=== PATIENT | female | born 1985 | race Caucasian/White ===

== ENCOUNTER 2020-11-02 13:52 | Inpatient (IN) | payer BC, SELFPAY ==
[2020-11-02] VITALS (63 sets, daily range): BP systolic 81–122; BP diastolic 30–84; PULSE 61–136; TEMP 36.8–37.1; O2SAT 95–100; BMI 24.5
[2020-11-02 15:40] LABS: Basophils Percent Auto 0.4 % (0.2-1.2); Eosinophils Absolute Auto 0.1 K/mm3 (0-0.3); Hematocrit 38.3 % (37.0-47.0); Hemoglobin 13.4 g/dL (12.0-15.0); Immature Granulocyte Absolute 0.07 K/mm3 (0.00-0.031); Lymphocytes Absolute Auto 1.09 K/mm3 (0.9-3.2); Lymphocytes Percent Auto 14.9 % (18.3-44.2); Mean Corpuscular Hemoglobin 30.7 pg (26-34); Mean Corpuscular Volume 87.8 fl (80-100); Mean Platelet Volume 9.7 fl (7.4-10.4); Monocytes Absolute Auto 0.5 K/mm3 (0.1-0.6); Monocytes Percent Auto 7.4 % (2.6-8.5); Neutrophils Absolute Auto 5.5 K/mm3 (1.3-6.7); Neutrophils Percent Auto 75.3 % (45.5-73.1); Platelet Count Result 153 k/mm3 (150-375); Red Blood Count 4.36 M/mm3 (4.2-5.4); White Blood Count 7.3 K/mm3 (4.5-10.0)
--- NOTE | 2020-11-02 15:41 | LDADM ---
This patient, Nichelle Stout, was admitted to Labor/Delivery/Recovery 109 on 11/02/20 at 13:52. Plans for labor, pain management and were discussed with patient. Patient/family oriented to hospital policies and general routines including ID bracelet, bed and alarms, visiting hours, pain management, procedures, bathroom and other care routines, personal items, smoking policy, room service/diet and guest tray routines, security routines, and visiting hours. Patient/Family are encouraged to report perceived risks to care and to ask questions if they do not understand what they are told or what they should do. See OBIX for further documentation.
[2020-11-02] MEDS: OXYTOCIN 30 UNITS/NS 500 ML 30 UNITS/500 ML BAG IV CONT (16:13)
[2020-11-02] MEDS: LACTATED RINGERS 1,000 ML 125 ML IV CONT ×2 (16:13→22:30)
--- NOTE | 2020-11-02 17:42 | PM.IMHP ---
H&P: HPI History of Present Illness Date/Time: 11/02/20 17:42 Chief Complaint: heart decels Narrative: Nichelle Stout is a 35 yo @ 38.3wks (MIKE 11/13/20) who presented to triage for routine testing due to gestational diabetes and was found to have 3 late decelerations on NST. She has had regular care. Good movement. No vaginal bleeding or leakage of fluid. She has since been started on pitocin augmentation but is comfortable; does desire epidural at some point. Her is complicated by: - A1GDM - Varicose veins Review of Systems Constitutional: Constitutional: Denies fever(s) Eyes: Eyes: Denies diplopia ENT: Denies headache(s) Cardiovascular: Cardiovascular: Denies chest pain and Denies rapid heart rate Respiratory: Respiratory: Denies cough and Denies dyspnea Gastrointestinal: Gastrointestinal: Denies nausea and Denies vomiting Genitourinary: Genitourinary: Denies vaginal discharge Neurologic: Denies headache(s) Psychiatric: Psychiatric: Denies anxiety and Denies depression [facility] Family History Family History Other Family history of glaucoma Family history of hypercholesterolemia Family history of malignant neoplasm of breast Hypertension Social History Social History Smoking status: Never smoker Alcohol intake: current Substance use: never Gender identity (if verbalized by the patient): Female Spiritual care concerns: No Meds Home Medications and Allergies Home Medications Medication Instructions Recorded Confirmed Type PNV cmb#95-ferrous fumarate-FA 1 tablet PO DAILY 09/21/20 11/02/20 History [] Allergies Allergy/AdvReac Type Severity Reaction Status Date / Time amoxicillin Allergy Intermediate Rash Verified 08/22/18 09:55 Vital Signs Vital Signs - 24 hr 11/02/20 15:46 11/02/20 16:00 11/02/20 16:15 Temperature Pulse Rate 82 81 83 Blood Pressure 94/62 L 95/63 L 104/62 11/02/20 16:22 Temperature 36.8 C Pulse Rate Blood Pressure Exam Const: General: cooperative, healthy appearing and comfortable Resp: Effort & Inspection: normal respiratory effort and able to speak in complete sentences Cardio: Rate: regular rate GI: GI Palp: No abdominal tenderness and Yes Soft to palpation : Other: FHT's: 130's/ mod janina/ + accels/ occasional mild variable + occasional late decel - cat 2, overrall reassuring TOCO: ctx's q3-5 min Cervix: 4/50/-3 Membranes: AROM, clear 1730 Pitocin: 2 Presentation: cephalic H&P: Results Labs Labs: Short CBC 11/02/20 Range/Units 15:31 WBC 7.3 (4.5-10.0) K/mm3 Hgb 13.4 (12.0-15.0) g/dL Hct 38.3 (37.0-47.0) % Plt Count 153 (150-375) k/mm3 Assessment and Plan Assessment and plan (1) Gestational diabetes: Qualifiers: Gestational diabetes mellitus control: diet-controlled Trimester: third trimester Qualified Code(s): O24.410 - Gestational diabetes mellitus in , diet controlled Code(s): O24.419 - Gestational diabetes mellitus in , unspecified control Status: Acute (2) heart deceleration: Status: Acute (3) Encounter for induction of labor: Code(s): Z34.90 - Encounter for supervision of normal , unspecified, unspecified trimester Status: Acute Additional Plan - Admitted to L&D or induction of labor due to heart decels at term - Augmentation with pitocin and AROM - Continuous monitoring; monitoring closely, overall reassuring - Anesthesia consult PRN pain - GBS negative, labs/US reviewed
--- NOTE | 2020-11-02 17:55 | WPDHPUPDATE1 ---
History and Physical Update Update Date/Time: 11/02/20 17:55 History and Physical has been reviewed, including an updated exam of the patient. There are NO changes in the patient's condition. Risks, benefits, and alternatives have been discussed and questions answered. Patient agrees to proceed with procedure.
[2020-11-02 18:09] LABS: Glucose Point of Care 87 (65-105)
--- NOTE | 2020-11-02 21:19 | WPDANESEPP ---
Anes - Eval Pre Procedure Procedure: Labor epidural Date/Time: 11/02/20 21:19 Surgeon: Raza Preop Diagnosis: pain during labor Pre Op Diagnosis: Induction of Labor Patient Data Age: 35 Gender: F Height: 1.65 m Weight: 67 kg Last Vital Signs Temp 36.9 C 11/02/20 20:00 Pulse 72 11/02/20 21:01 BP 113/62 11/02/20 21:01 Allergies Allergy/AdvReac Type Severity Reaction Status Date / Time amoxicillin Allergy Intermediate Rash Verified 08/22/18 09:55 Home Medications Medication Instructions Recorded Confirmed Type PNV cmb#95-ferrous fumarate-FA 1 tablet PO DAILY 09/21/20 11/02/20 History [] Laboratory Tests 11/02/20 11/02/20 11/02/20 15:31 15:31 15:31 WBC 7.3 K/mm3 K/mm3 (4.5-10.0) RBC 4.36 M/mm3 M/mm3 (4.2-5.4) Hgb 13.4 g/dL g/dL (12.0-15.0) Hct 38.3 % % (37.0-47.0) MCV 87.8 fl fl (80-100) MCH 30.7 pg pg (26-34) MCHC 35.0 g/dl g/dl (32-36) RDW 13.0 % % (11.5-14.5) Plt Count 153 k/mm3 k/mm3 (150-375) MPV 9.7 fl fl (7.4-10.4) Immature Gran % (Auto) 1.0 % H % (0-0.5) Neut % (Auto) 75.3 % H % (45.5-73.1) Lymph % (Auto) 14.9 % L % (18.3-44.2) [place] % (Auto) 7.4 % % (2.6-8.5) Eos % (Auto) 1.0 % % (0-4.4) Baso % (Auto) 0.4 % % (0.2-1.2) Lymph # (Auto) 1.09 K/mm3 K/mm3 (0.9-3.2) [place] # (Auto) 0.5 K/mm3 K/mm3 (0.1-0.6) Eos # (Auto) 0.1 K/mm3 K/mm3 (0-0.3) Baso # (Auto) 0.0 K/mm3 K/mm3 (0.0-0.1) Abs Immat Gran (auto) 0.07 K/mm3 H K/mm3 (0.00-0.031) Absolute Neuts (auto) 5.5 K/mm3 K/mm3 (1.3-6.7) Absolute Nucleated RBC 0.0 K/mm3 K/mm3 (0.0-0.012) Nucleated RBC % 0.0 % % (0.0-0.2) POC Capillary Glucose RPR Pending Blood Type A Positive Antibody Screen Negative 11/02/20 16:20 WBC RBC Hgb Hct MCV MCH MCHC RDW Plt Count MPV Immature Gran % (Auto) Neut % (Auto) Lymph % (Auto) [place] % (Auto) Eos % (Auto) Baso % (Auto) Lymph # (Auto) [place] # (Auto) Eos # (Auto) Baso # (Auto) Abs Immat Gran (auto) Absolute Neuts (auto) Absolute Nucleated RBC Nucleated RBC % POC Capillary Glucose 87 mg/dl mg/dl (65-105) RPR Blood Type Antibody Screen Patient hx anesthesia problems: none Family hx anesthesia problems: none [facility] Family History Family History Other Family history of glaucoma Family history of hypercholesterolemia Family history of malignant neoplasm of breast Hypertension Social History Social History Smoking status: Never smoker Alcohol intake: current Substance use: never Gender identity (if verbalized by the patient): Female Spiritual care concerns: No Exam Day of Procedure 11/02/20 21:19
[2020-11-03] VITALS (38 sets, daily range): BP systolic 95–120; BP diastolic 47–86; PULSE 60–112; RESP 16; TEMP 36.1–37; O2SAT 95–100
[2020-11-03 00:24] LABS: Glucose Point of Care 91 (65-105)
[2020-11-03 00:25] LABS: Glucose Point of Care 87 (65-105)
--- NOTE | 2020-11-03 01:50 | PM.OBPRVD ---
OB - Delivery Note Procedure Delivery date: 11/03/20 events: Gestational Diabetes and Labor Augmentation Intrapartal events: Deceleration Delivery augmentation: rupture of membranes and pitocin Delivery monitor: external FHT and external uterine Route of delivery: Laceration Description: Perineal - 2nd Degree Delivery repair: vicryl Specimen: Yes Quantitative Blood Loss (ml): 200 Anesthesia type: Epidural Disposition: floor Narrative: Patient progressed to complete dilation with desired to push. After approximately 5 contractions she delivered the head over intact perineum. A nuchal cord was palpated, but was loose and easily reduced. She then delivered the shoulders and body without complication. The baby had spontaneous cry and was immediately placed skin to skin. The umbilical cord was then clamped and cut. A segment of the cord was collected for cord gases and the remaining cord blood was collected for typing. With Pitocin running and gentle downward traction on the cord, the placenta delivered without issues. Good uterine tone and minimal bleeding was noted. The cervix, vagina, and perineum were examined. A second-degree perineal laceration was noted and repaired in the normal fashion using 2 0 Vicryl. Good hemostasis was noted. Sponge, lap, needle, instrument counts were correct at the end of the procedure. Mom and baby were left bonding skin to skin in a stable condition. Baby Date of : 11/03/20 Time of : 01:27 Weeks of gestation at delivery: 38 gender: Female Weight (pounds): 7 Weight (ounces): 10 presentation: vertex position: Left Occiput Anterior Placenta delivery description: Expressed cord vessel description: 3 Vessels, Nuchal Cord, Loose and Reduced score one minute: 9 score five minutes: 9
[2020-11-03] MEDS: OXYTOCIN 30 UNITS/NS 500 ML 30 UNITS/500 ML BAG 125 UNITS IV CONT (02:01)
--- NOTE | 2020-11-03 07:30 | PC.NURSE ---
PT introductions made and plan of care discussed per post , pain management, breast feeding, daily care activities. PT verbalized understanding of such care
[2020-11-03] MEDS: MULTIVIT/MIN/PREN/FOL AC/IRON TABLET 1 TAB PO (10:10)
[2020-11-03] MEDS: IBUPROFEN 600 MG TABLET PO ×3 (10:12→23:35)
[2020-11-03] MEDS: LANOLIN (LANSINOH) 7.5 GM CREAM 1 APPLIC TOPICAL (10:14)
--- NOTE | 2020-11-03 11:51 | PC.NURSE ---
Consulted with patient, reviewed feeding cues, frequencies, duration of feedings, feeding elimination flow sheet, and signs of adequate intake. Demonstrated stimulation techniques to wake for feeding. Assisted with waking and attempting to get to breast. sleepy at the breast and does not latch to the breast despite stimulation to stay awake. Reviewed positioning/alignment, holding breast and asymmetrical latch on. Reviewed signs of a correct latch, effective nursing and suck swallow ratio. Nipple care reviewed. Instructed mother to call out for RN assistance if she is unable to latch infant for feeding or she has discomfort with nursing. Instructed feeding should be initiated three hours from start of last feeding or if feeding cues are noted before. Mother voiced understanding of information shared. Breast pump provided due to mother's request when infant is not latching at the breast. Instructions given on breast pump care and usage and collection and storage of breast milk. Encouraged agdl-jo-egqu, breast massage and manual expression to stimulate supply. Assessed patient for correct flange size, placement and draw. Patient verbalizes and demonstrates understanding of instructions.
[2020-11-03 12:55] LABS: Rapid Plasma Reagin Non-Reactive (NonReactive)
--- NOTE | 2020-11-03 14:22 | PM.OBPNVD ---
OB - PN: Subj Subjective Date/time seen: 11/03/20 14:22 PPD#1 Nichelle reports doing well today. She is having cramping pain but the PO meds are helping. 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 She has tolerated regular diet w/o issue. She has voided and passed gas. She is ambulating w/o symptoms of anemia. She is breast feeding.pumping. No CP, SOB, fever, chills, headaches, vision changes, N/V, dizziness or palpitations. OB - PN: Obj Data Labs CBC & Chem 7: 11/02/20 15:31 Labs: Laboratory Results - last 24 hr 11/02/20 11/02/20 11/02/20 15:31 15:31 15:31 WBC 7.3 RBC 4.36 Hgb 13.4 Hct 38.3 MCV 87.8 MCH 30.7 MCHC 35.0 RDW 13.0 Plt Count 153 MPV 9.7 Immature Gran % (Auto) 1.0 H Neut % (Auto) 75.3 H Lymph % (Auto) 14.9 L [place] % (Auto) 7.4 Eos % (Auto) 1.0 Baso % (Auto) 0.4 Lymph # (Auto) 1.09 [place] # (Auto) 0.5 Eos # (Auto) 0.1 Baso # (Auto) 0.0 Abs Immat Gran (auto) 0.07 H Absolute Neuts (auto) 5.5 Absolute Nucleated RBC 0.0 Nucleated RBC % 0.0 POC Capillary Glucose RPR Non-reactive Blood Type A Positive Antibody Screen Negative 11/02/20 11/02/20 11/03/20 16:20 19:58 00:16 WBC RBC Hgb Hct MCV MCH MCHC RDW Plt Count MPV Immature Gran % (Auto) Neut % (Auto) Lymph % (Auto) [place] % (Auto) Eos % (Auto) Baso % (Auto) Lymph # (Auto) [place] # (Auto) Eos # (Auto) Baso # (Auto) Abs Immat Gran (auto) Absolute Neuts (auto) Absolute Nucleated RBC Nucleated RBC % POC Capillary Glucose 87 87 91 RPR Blood Type Antibody Screen OB - PN A/P Assessment and Plan (1) Status post vaginal delivery: Status: Acute (2) Gestational diabetes: Qualifiers: Gestational diabetes mellitus control: diet-controlled Trimester: third trimester Qualified Code(s): O24.410 - Gestational diabetes mellitus in , diet controlled Code(s): O24.419 - Gestational diabetes mellitus in , unspecified control Status: Acute Plan day: 1 Plan: routine care and discharge home (tomorrow) Comments: F/u in 4 wks No further glucose checks Pelvic rest ER return precautions: abd pain/n/v, fever, bleeding, signs of HTN Time Spent With Patient Time: Total time spent is greater than 50% in coordination of care (as documented) at patient's floor/unit and/or counseling patient: Review of Systems Review of Systems: All systems reviewed & are unremarkable except as noted in HPI and below (HPI) Exam Const: General: cooperative, healthy appearing, comfortable and no acute distress Resp: Effort & Inspection: normal respiratory effort and able to speak in complete sentences Auscultation: clear to auscultation bilaterally Cardio: Rate: regular rate GI: Inspection: normal to inspection and non-distended GI Palp: No abdominal tenderness and Yes Soft to palpation Auscultation: normal bowel sounds : Other: fundus firm below umbilicus Skin: General skin exam: normal color Neuro: General: patient oriented x3 Extrem: General: normal to inspection Psych: Appearance: grossly normal Affect: normal affect Attitude: cooperative
--- NOTE | 2020-11-03 15:17 | PC.NURSE ---
Infant to mom after blood sugar drawn. Mom declines wanting help at this time. Mom states she will call if she needs help getting infant to breast.
--- NOTE | 2020-11-03 15:25 | PC.NURSE ---
Mom put infant to breast independently. Infant was able to latch correctly. nursed eagerly, with steady draws and frequent swallowing noted. Infant was able to maintain latch without discomfort to mother.
[2020-11-03] MEDS: DOCUSATE SODIUM 100 MG CAPSULE PO (17:40)
[2020-11-04 05:48] LABS: Hematocrit 34.2 % (37.0-47.0); Hemoglobin 11.9 g/dL (12.0-15.0); Mean Corpuscular HGB Conc 34.8 g/dl (32-36); Mean Corpuscular Hemoglobin 31.4 pg (26-34); Mean Corpuscular Volume 90.2 fl (80-100); Mean Platelet Volume 10.6 fl (7.4-10.4); Platelet Count Result 155 k/mm3 (150-375); Red Blood Count 3.79 M/mm3 (4.2-5.4); Red Cell Distribution Width 13.1 % (11.5-14.5); White Blood Count 9.4 K/mm3 (4.5-10.0)
[2020-11-04 08:30] VITALS: BP 101/63; PULSE 95; RESP 16; TEMP 36.6; O2SAT 95
[2020-11-04] MEDS: MULTIVIT/MIN/PREN/FOL AC/IRON TABLET 1 TAB PO (08:39)
[2020-11-04] MEDS: IBUPROFEN 600 MG TABLET PO (08:39)
[2020-11-04] MEDS: DOCUSATE SODIUM 100 MG CAPSULE PO (08:39)
--- NOTE | 2020-11-04 10:42 | WPDANLDPN2 ---
Anes-Prog Note L&D Date/Time: 11/04/20 10:42 Comfortable throughout: labor and delivery Neuraxial method: epidural Epidural/Spinal procedure site: clean & non-tender Neuro status: Neuro function grossly intact. Cardiovascular status: normal Respiratory status: normal Airway patency: baseline Mental status: baseline Post-Op hydration status: normal Vital Signs: Last Vital Signs Temp 36.6 C 11/04/20 08:30 Pulse 95 11/04/20 08:30 Resp 16 11/04/20 08:30 BP 101/63 11/04/20 08:30 Pulse Ox 95 11/04/20 08:30 Pain score (VAS): 09/17 Post-procedural complaints: none Patient feedback: Patient satisfied with anesthetic care.
[2020-11-06 09:56] VITALS: BP 108/64; PULSE 57; RESP 16; TEMP 37; O2SAT 99
--- NOTE | 2020-11-14 12:44 | PM.OBDSVD ---
DS: Admitting Diagnosis Admitting Diagnosis Admitting Diagnosis: induction of labor; decels DS: Discharge Diagnosis Discharge Diagnosis (1) Status post vaginal delivery: Status: Acute (2) Encounter for induction of labor: Code(s): Z34.90 - Encounter for supervision of normal , unspecified, unspecified trimester Status: Acute (3) heart deceleration: Status: Acute (4) Gestational diabetes: Qualifiers: Gestational diabetes mellitus control: diet-controlled Trimester: third trimester Qualified Code(s): O24.410 - Gestational diabetes mellitus in , diet controlled Code(s): O24.419 - Gestational diabetes mellitus in , unspecified control Status: Acute OB - DS: Summary OB Procedures : NST and Ultrasound OB Procedures Intrapartum: Spontaneous Vag Delivery OB Procedures: : None Peripartum Data Delivery Method: Natural Vaginal Laceration Description: Perineal - 2nd Degree complications: none [place] 1: Gender: Female Disposition of : home Status at Discharge Functional status at discharge: independent ambulation Overall status at discharge: patient is back to baseline Time Spent with Patient Time attestation: Total time spent providing and/or coordinating discharge services: Time spent: Less than 30 minutes Exam Const: General: cooperative, healthy appearing, comfortable and no acute distress Resp: Effort & Inspection: normal respiratory effort and able to speak in complete sentences Auscultation: clear to auscultation bilaterally Cardio: Rate: regular rate GI: Inspection: normal to inspection and non-distended GI Palp: No abdominal tenderness and Yes Soft to palpation Auscultation: normal bowel sounds : Other: fundus firm below umbilicus Skin: General skin exam: normal color Neuro: General: patient oriented x3 Extrem: General: normal to inspection Psych: Appearance: grossly normal Affect: normal affect Attitude: cooperative DS: Data Data Completed and Pending Completed studies during hospitalization: Pending at discharge 11/03/20 08:11 Surgical [PTH] Routine Discharge Plan Discharge Attending physician on discharge: Marimar Person Discharging Clinician: Marimar Person Anticipated Discharge Date/Time: 11/04/20 08:00 Patient Disposition: Home, Self-Care Activity: pelvic rest Diet: regular Discharge Instructions: Education: Mom and Baby Guide Given to: Mother Follow-Up: Call your delivering provider's office for an appointment to be seen in: 4 Weeks Mom and baby should come to the [facility] for the follow-up appointment. Appointment Date/Time: November 06, 2020 at 10:00 am What to expect at your follow-up visit: Blood Pressure Check Physical Assessment Call [phone] if you are unable to keep your appointment time. BREAST CARE: * Wear a snug supportive bra. * For engorgement discomfort: Breast Feeding: * Apply warm moist washcloths * Express milk as needed to relieve engorgement * Wear loose clothing * For sore nipples: * Identify correct latch-on * Apply warm moist washcloths before and after nursing * Air dry nipples after nursing * May apply Lansinoh cream to nipples EPISIOTOMY/PERINEAL CARE: * Until bleeding stops, use your kolby bottle after urinating * Change your pad frequently throughout the day * You may take sitz baths several times a day (fill your bathtub with warm water and soak for 20 minutes.) Do NOT bathe in the water * No tub baths until seen by your physician - You may shower ACTIVITY: * Rest as much as possible. * Do not exercise or lift anything heavier than your baby (such as laundry or other children.) * Avoid stairs or driving as much as possible. * Do not put anything into the vagina. No
== END 2020-11-04 12:28 | disposition home or self-care (01) | DRG 807 ==
LOC: ANHLDR 14:54 → ANHOB2 11-03 04:53
PROVIDERS: Admitting Provider Obstetrics & Gynecology; Visit Provider Obstetrics & Gynecology
DX: O24.420 Gestational diabetes mellitus in childbirth, diet controlled (principal); Z37.0 Single live birth; O70.1 Second degree perineal laceration during delivery; O76 Abnormality in fetal heart rate and rhythm complicating labor and delivery; O69.81X0 Labor and delivery complicated by cord around neck, without compression, not applicable or unspecified; Z3A.38 38 weeks gestation of pregnancy
CPT/HCPCS: 36415; 82948; 85025; 85027; 86592; 86850; 86900; 86901; 88307; A9270; J2590; J2795; J7120

== ENCOUNTER 2020-11-02 13:55 | Outpatient (RCR) | payer BC, OTHER, SELFPAY ==
[2020-09-21 12:19] VITALS: BP 104/66; PULSE 94
[2020-09-28 15:42] VITALS: BP 102/52; PULSE 81
[2020-10-05 13:59] VITALS: BP 101/57; PULSE 90
[2020-10-12 15:21] VITALS: BP 109/61; PULSE 95
[2020-10-26 15:11] VITALS: BP 100/64; PULSE 86
--- NOTE | ~2020-11-02 | US_ITS ---
EXAMINATION: US OB BPP wo non-stress DATE: 09/28/2020 15:40 INDICATION: Gestational diabetes, advanced maternal age, third trimester TECHNIQUE: Real-time pelvic ultrasound was performed. The interpreting radiologist was not present fo r the study. COMPARISON: None. FINDINGS: There is a single living fetus in vertex presentation. The placenta is fundal. heart rate is 14 9 beats per minute (bpm). Biophysical profile performed by the technologist: breathing (30 sec sustained breathing in 30 minutes): 2 out of 2 movement (3 gross body movements in 30 minutes): 2 out of 2 tone (one episode of updsorx-acrzxnwxv-rxbndtd limb movement): 2 out of 2 Amniotic fluid pocket (2 cm): 2 out of 2 Total score: 8 out of 8 IMPRESSION: 1. Single living fetus in vertex presentation. 2. Biophysical profile 8 out of 8. Reviewed, dictated and finalized at location A. DITER CLERK
--- NOTE | ~2020-11-02 | US_ITS ---
EXAMINATION: US OB BPP wo non-stress EXAM DATE: 10/12/2020 15:17 INDICATION: Advanced maternal age. Gestational diabetes. 3rd trimester. TECHNIQUE: Pelvic obstetrical transabdominal sonogram was performed by a technologist. There are mu ltiple grayscale and Doppler images available for interpretation. Comparison is made to prior examina tion from 10/05/2020. FINDINGS: There is a single fetus identified in vertex presentation with a heart rate of 129 beats pe r minute. The placenta is located in the posterior position. There is no sonographic evidence of ret roplacental hemorrhage identified. There is subjectively expected amount of amniotic fluid. BIOPHYSICAL PROFILE (performed by the technologist) breathing (30 sec sustained breathing in 30 minutes): 2 out of 2 movement (3 gross body movements in 30 minutes): 2 out of 2 tone (one episode of vjhbogr-odzrsemou-ehxopuq limb movement): 2 out of 2 Amniotic fluid pocket (2 cm): 2 out of 2 Total score: 8 out of 8 IMPRESSION: 1. Single fetus with heart rate of 129 bpm. 2. Normal biophysical profile score of 8 out of 8. Reviewed, dictated and finalized at location B. UNT RECEIVABLE ASSOCIATE
--- NOTE | ~2020-11-02 | US_ITS ---
EXAMINATION: US OB limited w BPP DATE: 10/19/2020 15:53 INDICATION: Maternal gestational diabetes during third trimester of TECHNIQUE: Real-time pelvic ultrasound was performed. The interpreting radiologist was not present fo r the study. COMPARISON: 10/12/2020 FINDINGS: There is a single living fetus in breech presentation. The placenta is left posterior. heart r ate is 129 beats per minute (bpm). The following biometric data were obtained: BPD: 9.1 cm -> 36 weeks 5 days Head circumference: 34.7 cm -> 40 weeks 2 days Abdominal circumference: 36.4 cm -> 40 weeks 2 days Femur length: 7.4 cm -> 37 weeks 6 days These measurements are concordant. Head circumference to abdominal circumference ratio: 0.96 (normal range 0.87-1.06). Estimated weight: 3745 g (+/-) 562 g, 8lbs 4oz (+/-) 1 lb 4oz Biophysical profile performed by the technologist: breathing (30 sec sustained breathing in 30 minutes): 2 out of 2 movement (3 gross body movements in 30 minutes: 2 out of 2 tone (one episode of kotbesr-fjqacsjlp-rjkhama limb movement): 2 out of 2 Amniotic fluid pocket (2 cm): 2 out of 2 Total score: 8 out of 8 IMPRESSION: 1. Single living fetus in breech presentation with heart rate of 129 bpm. 2. Biophysical profile 8 out of 8. 4. Estimated weight is >97th percentile by Hadlock criteria when 11/13/2020 is used as the estim ated date of delivery (MIKE). Please correlate with clinical information or earlier ultrasounds for mo st accurate MIKE. Reviewed, dictated and finalized at location A. IDE CUTTER IMPRESSION: 1. Single living fetus in breech presentation with heart rate of 129 bpm . 2. Biophysical profile 8 out of 8. 4. Estimated weight is >97th percentile by Hadlock criteria when is used as the estimated date of delivery (MIKE). Please correlate with clinic al information or earlier ultrasounds for most accurate MIKE.
--- NOTE | ~2020-11-02 | US_ITS ---
EXAMINATION: US OB BPP wo non-stress DATE: 10/26/2020 15:41 INDICATION: Gestational diabetes, advanced maternal age, third trimester TECHNIQUE: Real-time pelvic ultrasound was performed. The interpreting radiologist was not present fo r the study. COMPARISON: 10/19/2020 FINDINGS: There is a single living fetus in vertex presentation. The placenta is left/posterior. heart ra te is 149 beats per minute (bpm). Biophysical profile performed by the technologist: breathing (30 sec sustained breathing in 30 minutes): 2 out of 2 movement (3 gross body movements in 30 minutes): 2 out of 2 tone (one episode of stovxjs-qupauummg-andimws limb movement): 2 out of 2 Amniotic fluid pocket (2 cm): 2 out of 2 Total score: 8 out of 8 IMPRESSION: 1. Single living fetus in vertex presentation. 2. Biophysical profile 8 out of 8. Reviewed, dictated and finalized at location A. WRAPPER
--- NOTE | ~2020-11-02 | US_ITS ---
EXAMINATION: US OB BPP wo non-stress DATE: 10/05/2020 13:57 INDICATION: Advanced maternal age. Gestational diabetes. Third trimester. TECHNIQUE: Real-time pelvic ultrasound was performed. COMPARISON: Ultrasound 09/28/2020 FINDINGS: There is a single living fetus in vertex presentation. The placenta is posterior. heart rate i s 129 beats per minute (bpm). Biophysical profile performed by the technologist: breathing (30 sec sustained breathing in 30 minutes): 2 out of 2 movement (3 gross body movements in 30 minutes): 2 out of 2 tone (one episode of jmdtrdx-xeoztmatr-rtyvreh limb movement): 2 out of 2 Amniotic fluid pocket (2 cm): 2 out of 2 Total score: 8 out of 8 IMPRESSION: 1. Single living fetus in vertex presentation. 2. Biophysical profile 8 out of 8. Reviewed, dictated and finalized at location A. RVISOR SPINNING
[2020-11-02 14:52] VITALS: BP 104/65; PULSE 74
== END 2020-11-03 08:11 | disposition home or self-care (01) ==
LOC: ANHOBOP 13:55
PROVIDERS: Visit Provider Obstetrics & Gynecology
DX: O24.419 Gestational diabetes mellitus in pregnancy, unspecified control (principal); Z3A.32 32 weeks gestation of pregnancy; Z3A.33 33 weeks gestation of pregnancy; Z3A.34 34 weeks gestation of pregnancy; Z3A.35 35 weeks gestation of pregnancy; Z3A.36 36 weeks gestation of pregnancy; Z3A.37 37 weeks gestation of pregnancy; Z3A.38 38 weeks gestation of pregnancy
CPT/HCPCS: 59025; 76815; 76819

== ENCOUNTER 2020-11-08 19:48 | Emergency (ER) | payer BC, SELFPAY ==
--- NOTE | ~2020-11-08 | XR_ITS ---
EXAMINATION: XR chest 2V DATE: 11/08/2020 22:57 INDICATION: Bradycardia TECHNIQUE: PA and lateral views of the chest are obtained. COMPARISON: None available FINDINGS: The lungs are free of acute opacities. There is no pleural effusion or pneumothorax. The ca rdiomediastinal silhouette is normal. The visualized bones and soft tissues are unremarkable. IMPRESSION: 1. No acute cardiopulmonary abnormality. Reviewed, dictated and finalized at location A. RMATION ASSURANCE
[2020-11-08 19:52] VITALS: BP 130/63; PULSE 51; RESP 16; TEMP 36.6; O2SAT 100
--- NOTE | 2020-11-08 19:54 | ECG_ITS ---
Measurements Intervals [place] Rate: 49 P: 62 OK: 157 QRS: 48 QRSD: 88 T: 57 QT: 425 QTc: 385 Interpretive Statements SINUS BRADYCARDIA BASELINE WANDER- II, III, AVR, AVL, AVF ABNORMAL ECG Electronically Signed On 11-09-2020 7:10:56 LAND SURVEYOR ASSISTANT by Ryan Barker D.O.
[2020-11-08 20:12] LABS: Basophils Percent Auto 0.6 % (0.2-1.2); Eosinophils Absolute Auto 0.1 K/mm3 (0-0.3); Eosinophils Percent Auto 1.9 % (0-4.4); Hemoglobin 14.2 g/dL (12.0-15.0); Immature Granulocyte Absolute 0.04 K/mm3 (0.00-0.031); Immature Granulocyte Percent A 0.6 % (0-0.5); Lymphocytes Percent Auto 22.4 % (18.3-44.2); Mean Corpuscular HGB Conc 34.6 g/dl (32-36); Mean Corpuscular Hemoglobin 31.2 pg (26-34); Mean Corpuscular Volume 90.1 fl (80-100); Monocytes Absolute Auto 0.5 K/mm3 (0.1-0.6); Monocytes Percent Auto 7.2 % (2.6-8.5); Neutrophils Absolute Auto 4.2 K/mm3 (1.3-6.7); Neutrophils Percent Auto 67.3 % (45.5-73.1); Platelet Count Result 211 k/mm3 (150-375); Red Blood Count 4.55 M/mm3 (4.2-5.4); Red Cell Distribution Width 12.4 % (11.5-14.5); White Blood Count 6.3 K/mm3 (4.5-10.0)
[2020-11-08 20:26] LABS: Anion Gap 5 mmol/L (8-16); Blood Urea Nitrogen 17 mg/dL (7-17); Calcium 9.1 mg/dL (8.4-10.2); Carbon Dioxide 24 mmol/L (22-30); Chloride 107 mmol/L (98-107); Estimated Glomerular Filt Rate > 60; Glucose 95 mg/dL (65-105); Potassium 3.9 mmol/L (3.4-5.0); Sodium 136 mmol/L (137-145)
[2020-11-08 20:37] LABS: Troponin I < 0.012 ng/mL (0.000-0.034)
--- NOTE | 2020-11-08 22:11 | PC.NURSE ---
pt. pumping in OB. will be here in approx. five minutes
[2020-11-08 22:34] VITALS: BP 146/77; PULSE 48; RESP 16; O2SAT 99
[2020-11-08 23:00] VITALS: BP 141/75; PULSE 40; RESP 12; O2SAT 99
--- NOTE | 2020-11-08 23:14 | PC.NURSE ---
Pt. to bathroom for urine sample.
[2020-11-08 23:30] VITALS: BP 126/79; PULSE 70; RESP 18; O2SAT 99
[2020-11-08 23:50] LABS: Add Urine Microscopic? YES; Appearance Urine Clear (Clear); Bilirubin Urine Negative (Negative); Blood Urine 2+ (Negative); Color Urine Straw (Yellow); Glucose Urine UA Negative (Negative); Ketones Urine Negative (Negative); Leukocyte Esterase Ur Negative LEU/UL (Negative); Mucus Urine Rare /lpf; Nitrate Urine Negative (Negative); Protein Urine Negative (Negative); Specific Grav Ur 1.011 (1.001-1.035); Squamous Epithelial Cell Urine Rare /hpf (Few); Urobilinogen Urine Negative mg/dL (<2.0)
[2020-11-09 00:27] VITALS: BP 138/89; PULSE 38; RESP 15; O2SAT 97
[2020-11-09 00:30] VITALS: BP 127/79; PULSE 38; RESP 19; O2SAT 99
[2020-11-09 01:00] VITALS: BP 138/74; PULSE 83; RESP 13; O2SAT 99
[2020-11-09] MEDS: FAMOTIDINE 20 MG TABLET PO (01:07)
--- NOTE | 2020-11-09 01:18 | ED.ARRPALP ---
HPI - Arrhythmia/Palpitations General Chief Complaint: Arrhythmia/Palpitations Stated Complaint: slow heart rate Time Seen by Provider: 11/08/20 22:16 History of Present Illness HPI narrative: Patient is a 35-year-old female who presents ER with low heart rate. Has noticed since the delivery of her daughter that her heart rate goes down to the 30s. She has had no lightheadedness or shortness of breath with exertion or movement. No chest pain or chest pressure. She does report when she lays back sometimes she will get a little discomfort in the back of her throat is woken her from sleep x2. No known history of reflux but was having this during the latter stages of her as well. She is on no rate control medications. No history of arrhythmia. No recent tick bites. Related Data Allergies Allergy/AdvReac Type Severity Reaction Status Date / Time amoxicillin Allergy Intermediate Rash Verified 11/08/20 22:38 Review of Systems Review of Systems: All systems reviewed & are unremarkable except as noted in HPI and below Constitutional: Constitutional: Denies chills, Denies fever(s) and Denies weakness ENT: Denies nasal congestion and Denies sore throat Cardiovascular: Cardiovascular: Denies chest pain, Denies radiating jaw, neck or arm pain and Reports slow heart rate Gastrointestinal: Gastrointestinal: Denies abdominal pain, Reports heartburn, Denies nausea and Denies vomiting PMFSH Past Medical History Medical History (Updated 11/09/20 @ 01:52 by Stanley Estrada MD) Healthy female adult Family History Family History Other Family history of glaucoma Family history of hypercholesterolemia Family history of malignant neoplasm of breast Hypertension Social History Social History Smoking status: Never smoker Alcohol intake: current Substance use: never Gender identity (if verbalized by the patient): Female Spiritual care concerns: No Exam Narrative: Exam Narrative: GENERAL: Well-appearing, well-nourished, and in no acute distress. HEAD: Normocephalic, atraumatic. CHEST: Clear to auscultation. No respiratory distress. HEART: Bradycardic and regular.. Normal peripheral pulses. ABDOMEN: Soft, nontender, nondistended. EXTREMITIES: Normal range of motion. No edema. SKIN: Warm, dry, no rash. NEURO: Alert and oriented x3. PSYCH: Normal mood and affect. Course Course Emergency Course: Discussed with Dr. Lagunas. Patient ambulated with heart rate up to 63 bpm. Since patient was asymptomatic she may be discharged home and then will follow up outpatient. Patient verbalized understanding of return precautions. Vital Signs Vital signs: Vital Signs Temperature 97.9 F 11/08/20 19:52 Pulse Rate 51 L 11/08/20 19:52 Respiratory Rate 16 11/08/20 19:52 Blood Pressure 130/63 11/08/20 19:52 Pulse Oximetry 100 11/08/20 19:52 Temperature 97.9 F 11/08/20 19:52 Pulse Rate 38 L 11/09/20 00:27 Respiratory Rate 15 11/09/20 00:27 Blood Pressure 138/89 11/09/20 00:27 Pulse Oximetry 97 11/09/20 00:27 MDM - Arrhythmia/Palpitations Lab Data Result diagrams: 11/08/20 20:04 11/08/20 20:04 Labs: Lab Results 11/08/20 11/08/20 11/08/20 Range/Units 20:04 20:04 20:04 WBC 6.3 (4.5-10.0) K/mm3 RBC 4.55 (4.2-5.4) M/mm3 Hgb 14.2 (12.0-15.0) g/dL Hct 41.0 (37.0-47.0) % MCV 90.1 (80-100) fl MCH 31.2 (26-34) pg MCHC 34.6 (32-36) g/dl RDW 12.4 (11.5-14.5) % Plt Count 211 (150-375) k/mm3 MPV 10.0 (7.4-10.4) fl Immature Gran % (Auto) 0.6 H (0-0.5) % Neut % (Auto) 67.3 (45.5-73.1) % Lymph % (Auto) 22.4 (18.3-44.2) % Bacon % (Auto) 7.2 (2.6-8.5) % Eos % (Auto) 1.9 (0-4.4) % Baso % (Auto) 0.6 (0.2-1.2) % Lymph # (Auto) 1.40 (0.9-3.2) K/mm3 Bacon # (Auto) 0.5
[2020-11-09 01:30] VITALS: BP 130/82; PULSE 78; RESP 18; O2SAT 96
== END 2020-11-09 01:50 | disposition home or self-care (01) ==
PROVIDERS: Emergency Medicine; Emergency Provider Emergency Medicine; PCP Family Medicine
DX: R00.1 Bradycardia, unspecified (principal)
CPT/HCPCS: 36415; 71046; 80048; 81001; 84443; 84484; 85025; 93005; 99284; A9270

== ENCOUNTER → 2022-04-18 07:38 | Outpatient (CLI) | payer OTHER, SELFPAY ==
--- NOTE | ~2022-04-18 | XR_ITS ---
XR thoracic spine 2V DATE: 04/18/2022 07:59 INDICATION: Back pain, burning TECHNIQUE: AP, lateral and swimmer views COMPARISON: None FINDINGS: There is osteopenia. No fracture or dislocation or bone destruction is evident. The thoracic pedicles are intact. No tamie yuli soft tissue thickening. IMPRESSION: Osteopenia Reviewed, dictated and finalized at location B. IMPRESSION: Osteopenia
== END ==
PROVIDERS: PCP Family Medicine; Visit Provider Chiropractor
DX: M54.6 Pain in thoracic spine (principal); M85.88 Other specified disorders of bone density and structure, other site
CPT/HCPCS: 72070

== ENCOUNTER 2024-03-18 12:46 | Outpatient (CLI) | payer OTHER, SELFPAY ==
--- NOTE | ~2024-03-18 | MM_ITS ---
EXAMINATION: MM screening obey BI w naresh HISTORY: Screening TECHNIQUE: Craniocaudal and mediolateral oblique 3-D tomosynthesis images were obtained and synthetic 2-D images were generated. CAD analysis was submitted and interpreted. COMPARISON: Comparison to multiple prior studies sequentially, with oldest reviewed study dated 04/29. BREAST PARENCHYMAL COMPOSITION: Dense: The breasts are extremely dense, which lowers the sensitivity of mammography. FINDINGS: Stable benign-appearing left breast calcifications. There is no evidence of suspicious mass , calcification, or architectural distortion to suggest malignancy in either breast. There has been n o suspicious interval change. IMPRESSION: 1. No mammographic evidence of malignancy. 2. Recommend routine screening mammography in one year. BI-RADS Category 2: Benign finding(s). Reviewed, dictated and finalized at location B.
== END 2024-03-18 12:47 ==
PROVIDERS: PCP Internal Medicine; Visit Provider Obstetrics & Gynecology
DX: Z12.31 Encounter for screening mammogram for malignant neoplasm of breast (principal)
CPT/HCPCS: 77063; 77067

== ENCOUNTER 2024-03-30 11:24 | Outpatient (CLI) | payer OTHER, SELFPAY ==
--- NOTE | ~2024-03-30 | US_ITS ---
US thyroid INDICATION: Right thyroid nodule TECHNIQUE: Real-time sonographic images of the thyroid gland were obtained. COMPARISON: No prior studies for comparison. FINDINGS: The right thyroid lobe measures 5.9 x 1.2 x 1.5 cm. The left thyroid lobe measures 5 x 1.2 x 1.5 cm. There is normal echotexture and echogenicity throughout the thyroid gland. In the right lo be there is an oval hypoechoic solid mass which is wider than tall measuring 10 x 9 x 4 mm with circu mscribed margins and no internal echogenic foci, TR 4. No discrete mass identified in the left thyroi d lobe. Normal vascular flow is present. IMPRESSION: 1. Probable benign 1 cm right thyroid nodule, TR 4. Follow-up ultrasound in 12 months recommended. Reviewed, dictated and finalized at location B.
== END 2024-03-30 11:25 ==
LOC: MICIMG 11:25
PROVIDERS: PCP Obstetrics & Gynecology; Visit Provider Internal Medicine
DX: E04.1 Nontoxic single thyroid nodule (principal)
CPT/HCPCS: 76536

== ENCOUNTER 2025-03-22 10:43 | Outpatient (CLI) | payer OTHER, SELFPAY ==
--- NOTE | ~2025-03-22 | MM_ITS ---
EXAMINATION: MM screening obey BI w naresh HISTORY: Screening TECHNIQUE: Craniocaudal and mediolateral oblique 3-D tomosynthesis images were obtained and synthetic 2-D images were generated. CAD analysis was submitted and interpreted. COMPARISON: Comparison to multiple prior studies sequentially, with oldest reviewed study dated 04/29. BREAST PARENCHYMAL COMPOSITION: Dense: The breasts are extremely dense, which lowers the sensitivity of mammography. FINDINGS: Stable benign-appearing left breast calcifications. There is no evidence of suspicious mass , calcification, or architectural distortion to suggest malignancy in either breast. There has been n o suspicious interval change. IMPRESSION: 1. No mammographic evidence of malignancy. 2. Recommend routine screening mammography in one year. BI-RADS Category 1: Negative Reviewed, dictated and finalized at location B.
== END 2025-03-22 10:44 | disposition home or self-care (01) ==
PROVIDERS: PCP Internal Medicine; Visit Provider Obstetrics & Gynecology
DX: Z12.31 Encounter for screening mammogram for malignant neoplasm of breast (principal)
CPT/HCPCS: 77063; 77067

== ENCOUNTER 2025-03-24 13:59 | Outpatient (CLI) | payer OTHER, SELFPAY ==
--- NOTE | ~2025-03-24 | US_ITS ---
Thyroid ultrasound. Clinical History: Thyroid nodule COMPARISON: 03/30/2024 Findings: Real-time sonography of the thyroid gland was performed. The right lobe measures 5.0 x 1.1 x 1.5 cm. The left lobe measures 4.9 x 1.2 x 1.4 cm. The isthmus is 2 mm in AP diameter. There is a 9 x 5 x 12 mm complex partially cystic nodule at the right thyroid lobe anteriorly near th e junction of the isthmus. Impression: 12 mm TR-4 nodule in the right thyroid lobe, as above, similar to prior exam. Annual follow-up exam a dvised. Reviewed, dictated and finalized at location M. Impression: 12 mm TR-4 nodule in the right thyroid lobe, as above, similar to prior exam. A nnual follow-up exam advised.
== END 2025-03-24 14:00 | disposition home or self-care (01) ==
LOC: MICIMG 14:00
PROVIDERS: PCP Internal Medicine; Visit Provider Internal Medicine
DX: E04.1 Nontoxic single thyroid nodule (principal)
CPT/HCPCS: 76536